=== PATIENT | female | born 1975 | race Two or more races ===

== ENCOUNTER 2019-04-23 01:22 | Emergency (ER) | payer MEDICAID ==
[~2019-04-23] VITALS: Ht 167.6 cm; Wt 42.6 kg
[2019-04-23] MEDS ORDERED: ONDANSETRON HCL/PF 4 MG/2 ML VIAL IVP ONE (02:00)
[2019-04-23] MEDS ORDERED: IV NS 0.9% 1,000 ML BAG IV ONE (02:00)
[2019-04-23] MEDS ORDERED: ONDANSETRON HCL/PF 4 MG/2 ML VIAL ONE ×2 (02:06→02:24)
[2019-04-23 02:24] LABS: BASOPHILS % (AUTO) 0.2 % (0.0-2.0); EOSINOPHILS % (AUTO) 0.6 % (0.0-6.0); HEMATOCRIT 42 % (33-45); HEMOGLOBIN 13.7 g/dL (11.5-14.8); LYMPHOCYTES # (AUTO) 0.6 /CMM (0.8-4.8); LYMPHOCYTES % (AUTO) 5.2 % (20.0-44.0); MEAN CORPUSCULAR HGB CONC 32 g/dl (31.0-36.0); MEAN CORPUSCULAR VOLUME 81 fL (82-100); MONOCYTES # (AUTO) 0.7 /CMM (0.1-1.30); MONOCYTES % (AUTO) 6.5 % (2.0-12.0); NEUTROPHILS # (AUTO) 9.3 /CMM (1.8-8.9); NEUTROPHILS % (AUTO) 87.5 % (43.0-81.0); PLATELET COUNT (AUTO) 334 /CMM (150-450); RED BLOOD CELL COUNT(AUTO) 5.23 MIL/uL (4.0-5.2); WHITE BLOOD COUNT (AUTO) 10.7 K/uL (4.3-11.0)
[2019-04-23 02:34] LABS: CALCIUM, SERUM 9.8 mg/dL (8.5-10.1); CARBON DIOXIDE 31 mmol/L (21-32); CHLORIDE 95 mmol/L (98-107); CREATININE 1.3 mg/dL (0.6-1.3); GLUCOSE 116 mg/dL (74-106); POTASSIUM 4.6 mmol/L (3.5-5.1); SODIUM SERUM 137 mmol/L (136-145); UREA NITROGEN, BLOOD 35 mg/dL (7-18)
--- NOTE | 2019-04-23 02:37 | NUR ---
BIBSELF FROM HOME. TO ER BED 9. AAOX4. NO RESP DISTRESS NOTED. AMBULATORY. C/O ABDOMINAL PAIN, NAUSEA, VOMMITING AND CONSTIPATION. PT REPORTS PAIN 10/10, ACHING, CRAMPING. PAIN IS CHRONIC BUT WORST IN THE PAST WEEK. VOMMITING IS REPORTED FOR THE PAST WEEK. CONTIPATION FOR THE PAST 10 DAYS. PT ALSO REPORTS THAT SHE CANT KEEP FOOR AND LIQUID DOWN AND LOST WEIGHT SINCE DECEMBER TOTAL OF 15KG. MD WAS AT BEDSIDE. ORDERS RECEIVED, NOTED AND CARRIED OUT. IV LINE OBTAINED ON MAHIN 20G. BLOOD DRAWN AND GIVEN TO TECHNICAL PRODUCER AT BEDSIDE.
[2019-04-23 02:40] LABS: ALANINE AMINOTRANSFERASE 10 U/L (12-78); ALBUMIN 3.4 g/dL (3.4-5.0); ALKALINE PHOSPHATASE 63 U/L (46-116); ASPARTATE AMINOTRANSFERASE 19 U/L (15-37); BILIRUBIN,DIRECT 0.1 mg/dL (0.0-0.2); BILIRUBIN,TOTAL 0.4 mg/dL (0.2-1.0); LIPASE 101 U/L (73-393); TOTAL PROTEIN, SERUM 7.4 g/dL (6.4-8.2)
[2019-04-23] MEDS ORDERED: CT SWABBABLE VALVE TRANS SET 1 EA INFUS.SET MC ONE (02:52)
[2019-04-23] MEDS ORDERED: IOHEXOL-300 100 ML VIAL IV ONE (02:52)
[2019-04-23] MEDS ORDERED: IV NS 0.9% 250 ML IV ONE (02:52)
--- NOTE | 2019-04-23 03:15 | NUR ---
PT BACK FROM RADIOLOGY
--- NOTE | 2019-04-23 03:23 | NUR ---
PT AMBULATED TO BATHROOM ON STEADY GAIT
--- NOTE | 2019-04-23 03:27 | NUR ---
URINE COLLECTED. SENT TO STAT LAB
[2019-04-23 03:38] LABS: APPEARANCE,URINE SL CLOUDY (CLEAR); BILIRUBIN,URINE 1+ (NEGATIVE); BLOOD, URINE NEGATIVE Ery/uL (NEGATIVE); COLOR,URINE YELLOW (YELLOW); KETONES,URINE TRACE (NEGATIVE); LEUKOCYTE ESTERASE ,URINE NEGATIVE (NEGATIVE); NITRITE, URINE NEGATIVE (NEGATIVE); PH,URINE 5.5 (5.0-8.0); PROTEIN,URINE 1+ mg/dl (NEGATIVE); UGLUCOSE NEGATIVE (NEGATIVE); UROBILINOGEN,URINE 0.2 EU/dL (0.2)
[2019-04-23 03:56] LABS: BACTERIA,URINE None seen /HPF (None Seen); MUCUS,URINE Few /LPF (None Seen); RBC,URINE 0-2 /HPF (0-2); SQUAMOUS EPITHELIAL CELL,UR Moderate /HPF (None Seen); WBC,URINE 0-2 /HPF (0-3)
--- NOTE | 2019-04-23 04:20 | NUR ---
Patient discharged to home in stable condition. Written and verbal after care instructions given. Patient verbalizes understanding of instruction.IV removed. Catheter intact and site benign. Pressure and 4x4 applied to site. No bleeding noted. Pt ambulatory with a steady gait
[2019-04-23 04:22] VITALS: BP 114/59
== END 2019-04-23 04:22 | disposition home or self-care (01) ==
LOC: ER 01:22
DX: C78.6 Secondary malignant neoplasm of retroperitoneum and peritoneum (principal); R11.2 Nausea with vomiting, unspecified
CPT/HCPCS: 36415; 71045; 74177; 80048; 80076; 81001; 83690; 84484; 85025; 85730; 93005; 96361; 96374; 99284; J2405 ×2; J7030; J7050; Q9967; 81000-TC